=== PATIENT | female | born 2000 | race Hispanic/Latino ===

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

== ENCOUNTER → 2020-08-22 | Day surgery (SDC) | payer OTHER ==
[~2020-08-22] MED LIST changes: -GLUCAGON FOR INJ 1 MG VIAL ONE; -GLYCOPYRROLATE INJ 0.2 MG/ML VIAL ONE; -HYOSCYAMINE 0.125 MG TAB ONE; +LIDOCAINE HCL 2% LOCAL INJ 5 ML SDV VIAL INJ ONE; +MIDAZOLAM HCL 2 MG/2 ML VIAL ONE; -MIDAZOLAM HCL 5MG/ML 2ML VIAL ONE; -ONDANSETRON HCL INJ 2MG/ML 2ML 2 MG/ML VIAL ONE; +PROPOFOL IV EMULSION 10 MG/ML 20 ML VIAL ONE; -PROPOFOL IV EMULSION 10 MG/ML 50 ML VIAL ONE; +TRAZODONE HCL50 MG PO; +ZOLOFT50 MG PO
[2020-08-22 17:30] VITALS: BP 114/85
[2020-08-22 18:08] LABS: WBC,FECAL (FECAL LACTOFERRIN) NEGATIVE (NEGATIVE)
[2020-08-23 13:30] LABS: C DIFFICILE TOXIN A&B AMP PROB NEGATIVE (NEGATIVE)
== END | disposition home or self-care (01) ==
LOC: OR 11:04
PROVIDERS: ATTEND Internal Medicine Gastroenterology
DX: K52.9 Noninfective gastroenteritis and colitis, unspecified (principal); K62.89 Other specified diseases of anus and rectum; Z91.041 Radiographic dye allergy status; Z91.013 Allergy to seafood; Z68.30 Body mass index [BMI] 30.0-30.9, adult
CPT/HCPCS: 36415; 45380; 81025; 83630; 83993; 85651; 86140; 86256; 86671; 87045; 87177; 87328; 87493; J2001; J2250; J2704; J3010; 45378